=== PATIENT | female | born 1990 | race Caucasian/White ===

== ENCOUNTER 2016-09-21 18:55 | Observation (INO) | payer BC ==
[~2016-09-21] VITALS: Ht 157.5 cm; Wt 84.4 kg
[2016-09-21] MEDS ORDERED: TERBUTALINE SULFATE 1 MG/ML VIAL SUBCUT PRN (21:15)
[2016-09-21 23:27] VITALS: BP 113/78; PULSE 94; RESP 18; TEMP 98.5
== END 2016-09-22 00:05 | disposition home or self-care (01) ==
LOC: SPU 18:55
PROVIDERS: ADMIT Obstetrics & Gynecology; ATTEND Obstetrics & Gynecology
DX: O46.93 Antepartum hemorrhage, unspecified, third trimester (principal); O26.893 Other specified pregnancy related conditions, third trimester; R10.9 Unspecified abdominal pain; Z3A.32 32 weeks gestation of pregnancy
CPT/HCPCS: 81002; 96372; G0378; J3105

== ENCOUNTER 2016-11-01 16:35 | Observation (INO) | payer BC ==
[~2016-11-01] VITALS: Ht 157.5 cm; Wt 90.3 kg
[2016-11-01 17:20] LABS: BASOPHILS % (AUTO) 0.2 % (0.0-2.0); EOSINOPHILS # (AUTO) 0.1 K/uL (0.0-0.4); HEMATOCRIT 29.9 % (36-48); HEMOGLOBIN 9.7 g/dL (12.0-16.0); LYMPHOCYTES # (AUTO) 1.2 K/uL (1.0-5.5); LYMPHOCYTES % (AUTO) 19.6 % (20.5-51.5); MEAN CORPUSCULAR HEMOGLOBIN 26 pg (27-31); MEAN CORPUSCULAR HGB CONC 33 % (32-36); MEAN CORPUSCULAR VOLUME 80 fL (79.0-98.0); MONOCYTES # (AUTO) 0.4 K/uL (0.0-1.0); MONOCYTES % (AUTO) 6.5 % (1.7-9.3); NEUTROPHILS # (AUTO) 4.5 K/uL (1.8-7.7); NEUTROPHILS % (AUTO) 72.7 % (40.0-70.0); PLATELET COUNT (AUTO) 226 K/uL (130-430); RED BLOOD CELL COUNT(AUTO) 3.76 MIL/uL (4.2-6.2); RED CELL DISTRIBUTION WIDTH 13.9 % (9.0-15.0); WHITE BLOOD COUNT (AUTO) 6.2 K/uL (4.8-10.8)
[2016-11-01 17:34] LABS: CALCIUM 8.5 mg/dL (8.4-11.0); CREATININE 0.67 mg/dL (0.55-1.30); POTASSIUM 3.9 mmol/L (3.5-5.1)
[2016-11-01 17:39] LABS: ALBUMIN 2.6 g/dL (3.4-4.8); TOTAL BILIRUBIN 0.2 mg/dL (0.0-1.0); TOTAL PROTEIN, SERUM 6.5 g/dL (6.4-8.3)
[2016-11-01 18:39] LABS: BILIRUBIN,URINE NEGATIVE (NEGATIVE); CLARITY/URINE HAZY (CLEAR); COLOR,URINE YELLOW (YELLOW); GLUCOSE,URINE NEGATIVE (NEGATIVE); KETONES,URINE TRACE (NEGATIVE); LEUKOCYTE ESTERASE ,URINE NEGATIVE (NEGATIVE); NITRITE, URINE NEGATIVE (NEGATIVE); PROTEIN URINE 2+ (NEGATIVE); UROBILINOGEN,URINE 0.2 (0.2-1.0)
[2016-11-01 18:45] LABS: BLOOD, URINE TRACE (NEGATIVE)
[2016-11-01 18:48] LABS: BACTERIA,URINE MODERATE /HPF (None Seen); MUCUS,URINE 2+ /LPF (None Seen)
== END 2016-11-01 19:10 | disposition home or self-care (01) ==
LOC: SPU 16:35
PROVIDERS: ADMIT Obstetrics & Gynecology; ATTEND Obstetrics & Gynecology
DX: O26.893 Other specified pregnancy related conditions, third trimester (principal); R03.0 Elevated blood-pressure reading, without diagnosis of hypertension; Z3A.38 38 weeks gestation of pregnancy
CPT/HCPCS: 36415; 76815; 80053; 81000; 85025; G0378

== ENCOUNTER 2016-11-05 11:13 | Inpatient (IN) | payer BC ==
[~2016-11-05] VITALS: Ht 157.5 cm; Wt 90.3 kg
[2016-11-05] MEDS ORDERED: OXYTOCIN/NORMAL SALINE 1,000 ML IV SCH (11:20)
[2016-11-05] MEDS ORDERED: LR 1,000 ML IV ONE ×2 (11:20→19:27)
[2016-11-05] MEDS ORDERED: TERBUTALINE SULFATE 1 MG/ML VIAL SUBCUT ONE (11:30)
[2016-11-05 12:07] LABS: BASOPHILS % (AUTO) 0.4 % (0.0-2.0); EOSINOPHILS # (AUTO) 0.1 K/uL (0.0-0.4); EOSINOPHILS % (AUTO) 1.3 % (0.0-4.0); HEMATOCRIT 30.9 % (36-48); HEMOGLOBIN 10.1 g/dL (12.0-16.0); LYMPHOCYTES # (AUTO) 1.3 K/uL (1.0-5.5); LYMPHOCYTES % (AUTO) 19.9 % (20.5-51.5); MEAN CORPUSCULAR HEMOGLOBIN 26 pg (27-31); MEAN CORPUSCULAR HGB CONC 33 % (32-36); MEAN CORPUSCULAR VOLUME 79 fL (79.0-98.0); MONOCYTES # (AUTO) 0.3 K/uL (0.0-1.0); MONOCYTES % (AUTO) 5.1 % (1.7-9.3); NEUTROPHILS # (AUTO) 4.9 K/uL (1.8-7.7); NEUTROPHILS % (AUTO) 73.3 % (40.0-70.0); PLATELET COUNT (AUTO) 214 K/uL (130-430); RED BLOOD CELL COUNT(AUTO) 3.92 MIL/uL (4.2-6.2); RED CELL DISTRIBUTION WIDTH 14.1 % (9.0-15.0); WHITE BLOOD COUNT (AUTO) 6.6 K/uL (4.8-10.8)
[2016-11-05] MEDS ORDERED: MINERAL OIL 30 ML UDC ONE (15:00)
[2016-11-05 18:51] VITALS: BP_SYST 150
[2016-11-05 19:03] VITALS: BP_SYST 150
[2016-11-05] MEDS: LR 1,000 ML IV SCH (20:49)
[2016-11-05] MEDS: NALBUPHINE HCL 10 MG/ML AMP IVP PRN ×2 (21:52→23:53)
[2016-11-06] MEDS ORDERED: FENT2mCg/mL-ROPIVA0.2%/NS EPID 150 ML EP ONE (00:48)
[2016-11-06] MEDS: LR 1,000 ML IV SCH (01:04)
[2016-11-06] MEDS ORDERED: LR 500 ML IV ONE (01:24)
[2016-11-06] MEDS ORDERED: FENT2mCg/mL-ROPIVA0.2%/NS EPID 150 ML EP SCH (01:30)
[2016-11-06] MEDS ORDERED: ePHEDrine sulfate 50 MG/ML VIAL IVP PRN (01:30)
[2016-11-06] MEDS ORDERED: ACETAMINOPHEN 325 MG TABLET PO PRN ×2 (11:15→12:30)
[2016-11-06] MEDS ORDERED: GENTAMICIN 120 mg/100 mL NS 100 ML IV ONE (11:15)
[2016-11-06] MEDS ORDERED: AMPICILLIN SODIUM 2 GM in NS 100 ML IV ONE (11:15)
[2016-11-06] MEDS: NALBUPHINE HCL 10 MG/ML AMP IVP PRN (12:09)
[2016-11-06] MEDS ORDERED: OXYTOCIN/NORMAL SALINE 1,000 ML IV ONE (12:20)
[2016-11-06] MEDS ORDERED: OXYTOCIN/NORMAL SALINE 1,000 ML IV SCH (12:20)
[2016-11-06] MEDS ORDERED: HYDROCORTISONE 0.5%, 28.35 GM TOPICAL CREAM TP PRN (12:30)
[2016-11-06] MEDS ORDERED: DERMOPLAST SPRAY TP PRN (12:30)
[2016-11-06] MEDS ORDERED: RHO(D) IMMUNE GLOBULIN/MALTOSE 1500 UNITS/1.3 ML (WINHRO) IM PRN (12:30)
[2016-11-06] MEDS ORDERED: LANOLIN 7 GM OINT. TP PRN (12:30)
[2016-11-06] MEDS ORDERED: MEASLES,MUMPS&RUBELLA VACC/PF 12500 UNIT/0.5 ML VIAL SUBQ PRN (12:30)
[2016-11-06] MEDS ORDERED: SENNOSIDES/DOCUSATE SODIUM 1 TAB TABLET(SENOKOT-S) PO PRN (12:30)
[2016-11-06] MEDS ORDERED: METHYLERGONOVINE MALEATE 0.2 MG TABLET PO PRN (12:30)
[2016-11-06] MEDS ORDERED: ANUSOL 1 EA SUPP.RECT (PREPARATION H) RC PRN (12:30)
[2016-11-06] MEDS ORDERED: GLYCERIN/WITCH HAZEL (TUCKS PADS) TP PRN (12:30)
[2016-11-06] MEDS ORDERED: DOCUSATE SODIUM 100 MG CAPSULE PO PRN (12:30)
[2016-11-06] MEDS ORDERED: OXYCODONE/ACETAMINOPHEN 5-325 TABLET PO PRN ×2 (12:30)
[2016-11-06] MEDS: IBUPROFEN 600 MG TABLET PO SCH (17:49)
[2016-11-06] MEDS ORDERED: TEMAZEPAM 15 MG CAPSULE PO PRN (21:00)
[2016-11-07] MEDS: IBUPROFEN 600 MG TABLET PO SCH ×5 (00:10→23:53)
[2016-11-07 06:49] LABS: HEMATOCRIT 27.6 % (36-48); HEMOGLOBIN 9.1 g/dL (12.0-16.0)
[2016-11-08] MEDS: IBUPROFEN 600 MG TABLET PO SCH (06:13)
[2016-11-08] MEDS ORDERED: IBUPROFEN 600 MG TABLET ONE (06:18)
== END 2016-11-08 13:15 | disposition home or self-care (01) | DRG 775 ==
LOC: SPU 11:13
PROVIDERS: ADMIT Obstetrics & Gynecology; ATTEND Obstetrics & Gynecology
PROC: 10E0XZZ Delivery of Products of Conception, External Approach (ICD-10-PCS; principal; 2016-11-06)
PROC: 0UQMXZZ Repair Vulva, External Approach (ICD-10-PCS; 2016-11-06)
PROC: 3E0R3CZ (ICD-10-PCS; 2016-11-06)
PROC: 00HU33Z Insertion of Infusion Device into Spinal Canal, Percutaneous Approach (ICD-10-PCS; 2016-11-06)
PROC: 3E0134Z Introduction of Serum, Toxoid and Vaccine into Subcutaneous Tissue, Percutaneous Approach (ICD-10-PCS; 2016-11-06)
DX: O16.4 Unspecified maternal hypertension, complicating childbirth (principal); O41.1230 Chorioamnionitis, third trimester, not applicable or unspecified; O71.82 Other specified trauma to perineum and vulva; Z3A.38 38 weeks gestation of pregnancy; Z37.0 Single live birth; Z23 Encounter for immunization
CPT/HCPCS: 36415; 81002-TC; 85018-TC; 85025; 86592; 86886; 86900; 86901; J0290; J1580; J2300; J2590; J3010; J7120